=== PATIENT | male | born 1990 ===

== ENCOUNTER 2017-06-21 16:56 | Emergency (ER) | payer OTHER ==
[~2017-06-21] VITALS: Wt 87.3 kg
[2017-06-21 17:24] VITALS: BP 129/69; TEMP 97.6
[2017-06-21 18:11] VITALS: PULSE 79
== END 2017-06-21 18:10 | disposition home or self-care (01) ==
LOC: COL.ER 16:56
DX: M79.89 Other specified soft tissue disorders (principal); M79.621 Pain in right upper arm